=== PATIENT | male | born 1950 | race Caucasian/White ===

== ENCOUNTER 2018-10-02 10:43 | Observation (INO) | payer MEDICARE, OTHER ==
[~2018-10-02] VITALS: Ht 172.7 cm; Wt 103.9 kg
[~2018-10-02 10:43] MED LIST: AVAPRO150 MG PO; BABY ASPIRIN81 MG PO; COQ10 SG 100 S1 EACH PO; CRESTOR20 MG PO; GARLIC1 EACH PO; LAMISIL250 MG PO; MULTIVITAMINS1 EAC7 PO; NORVASC10 MG PO; PRILOSEC OTC20 MG PO
--- NOTE | 2018-10-02 11:30 | Diagnostic Imaging Report ---
EXAMINATION: Head CT HISTORY: Pleural effusion, alteration of consciousness COMPARISON: Head CT 05/29/2010 TECHNIQUE: Multidetector axial images were obtained without contrast from the foramen magnum to the vertex . The images were reconstructed using brain and bone algorithms. Thin section brain images were reformatted into coronal and sagittal planes. Image quality: Motion/streaking artifact limits the evaluation of the skull base and posterior cranial fossa. Dose modulation, iterative reconstruction, and/or weight based adjustment of the mA/kV was utilized to reduce the radiation dose to as low as reasonably achievable. FINDINGS: Parenchyma: 1. Cortical subcortical encephalomalacia in the left parieto-occipital cortex, consistent with chronic infarct in a watershed distribution between the left in PA and KENROY vascular territories (acute on head CT dated 05/29/2010). 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 2. No mass or hemorrhage. No CT evidence of acute territorial vascular insult. Extra-axial spaces:No abnormal density. No extra-axial fluid collections Brain volume: Normal for age. Ventricles: No hydrocephalus or displacement. Arteries: No density suggestive of thrombus. Dural sinuses: No abnormal density. Extra-axial spaces: No abnormal density. Foramen magnum: No mass, Chiari malformation, or basilar invagination. Sella: No obvious mass. Paranasal/mastoid sinuses: Imaged portions unremarkable. Skull/Scalp: No lytic or blastic lesions. No fractures. IMPRESSION: 1. No acute intracranial hemorrhage or cortical infarcts. 2. Chronic cortical infarct in the left parietal and occipital lobes as detailed above. A nonemergent CT angiogram of the head and neck with contrast is recommended for evaluation. Signed by: Dr. Ana Laura Gonzales M.D. on 10/02/2018 11:26 AM
[2018-10-02 12:04] LABS: BILIRUBIN,URINE NEGATIVE (NEGATIVE); CLARITY,URINE HAZY (CLEAR); COLOR,URINE YELLOW (YELLOW); KETONES,URINE NEGATIVE (NEGATIVE); LEUKOCYTE ESTERASE ,URINE NEGATIVE (NEGATIVE); NITRITE,URINE NEGATIVE (NEGATIVE); PROTEIN,URINE DIPSTICK NEGATIVE (NEGATIVE); URINE UROBILINOGEN 0.2 mg/dL (0.2 - 1)
--- NOTE | 2018-10-02 12:05 | NUR ---
RADIOLOGY AT BEDSIDE FOR CXR.
[2018-10-02 12:12] LABS: AMORPHOUS SEDIMENT,URINE FEW (FEW); BACTERIA,URINE RARE /HPF; EPITHELIAL CELLS,URINE RARE /LPF; WBC,URINE (MAN) 0-5 /HPF (0-5)
--- NOTE | 2018-10-02 13:32 | Diagnostic Imaging Report ---
Examination: Single AP view of the chest. COMPARISON: None. INDICATION: Confusion DISCUSSION: Lines/tubes: None. Lungs: The lungs are well inflated and clear. No pneumonia or pulmonary edema. Pleura: No pleural effusion or pneumothorax. Heart and mediastinum: The heart and the mediastinum are unremarkable. Bones and soft tissues: No acute bony abnormalities. IMPRESSION: 1. No acute cardiopulmonary abnormalities. Signed by: Dr. Roderick Gaxiola M.D. on 10/02/2018 1:29 PM
[2018-10-02 13:35] LABS: BASOPHILS # (AUTO) 0.1 (0.0-0.1); BASOPHILS % 1.4 % (0.0-1.0); EOSINOPHILS # (AUTO) 0.4 (0.0-0.4); EOSINOPHILS % 5.8 % (0.0-6.0); HEMOGLOBIN 14.4 g/dL (14.0-18.0); LYMPHOCYTES # (AUTO) 1.1 (1.0-3.2); LYMPHOCYTES % 14.7 % (18.0-39.1); MEAN CORPUSCULAR HEMOGLOBIN 30.7 pg (28-32); MEAN CORPUSCULAR HGB CONC 34.3 g/dL (31-35); MEAN CORPUSCULAR VOLUME 89.6 fL (81-99); MONOCYTES # (AUTO) 0.5 (0.2-0.8); MONOCYTES % 6.4 % (4.4-11.3); NEUTROPHILS # (AUTO) 5.4 (2.1-6.9); NEUTROPHILS % 71.4 % (38.7-80.0); PLATELET COUNT 241 x10e3/uL (140-360); RED BLOOD COUNT 4.69 x10e6/uL (4.3-5.7)
[2018-10-02 13:53] LABS: ALANINE AMINOTRANSFERASE 31 IU/L (0-55); ALBUMIN/GLOBULIN RATIO 0.9 (0.8-2.0); ALKALINE PHOSPHATASE 116 IU/L (40-150); BLOOD UREA NITROGEN 16 mg/dL (7-26); BUN/CREATININE RATIO 18 (6-25); CARBON DIOXIDE 26 mmol/L (22-29); CHLORIDE 101 mmol/L (98-107); CREATINE KINASE 135 IU/L (30-200); CREATININE, SERUM 0.88 mg/dL (0.72-1.25); EST GLOMERULAR FILTRATION RATE > 60 ML/MIN (60-); GLUCOSE 93 mg/dL (74-118); SODIUM 135 mmol/L (136-145)
--- OUTSIDE RECORDS SUMMARY | 2018-10-02 15:35 | XMS REPORT ---
Author Author [facility] Address Unknown Phone Unavailable Care Team Providers Care Services Rep Name Role Phone Watson SINGLETON Unavailable Unavailable Problems This patient has no known problems. Allergies, Adverse Reactions, Alerts This patient has no known allergies or adverse reactions. Medications This patient has no known medications. Results Test Description Test Time Test Comments Text Results Atomic Results Result Comments CHEST SINGLE (PORTABLE) 2018-10-02 13:28:00 [place] [address] Patient Name: DIRK SHIPLEY MR #: [id number] : 1950 Age/Sex: 68/M Req #: [id number] Adm Physician: Ordered by: ANNITA SINGLETON MD Report #: [id number] Location: ER Room/Bed: Procedure: [id number] DX/CHEST SINGLE (PORTABLE) Exam Date: 10/02/18 Exam Time: 1200 REPORT STATUS: Signed Examination: Single AP view of the chest. COMPARISON: None. INDICATION: Confusion DISCUSSION: Lines/tubes: None. Lungs: The lungs are well inflated and clear. No pneumonia or pulmonary edema. Pleura: No pleural effusion or pneumothorax. Heart and mediastinum: The heart and the mediastinum are unremarkable. Bones and soft tissues: No acute bony abnormalities. IMPRESSION: 1. No acute cardiopulmonary abnormalities. Signed by: Dr. Kalyan Roche M.D. on 10/02/2018 1:29 PM Dictated By: KALYAN ROCHE MD 28 Transcribed By: JIA on 10/02/181328 COPY TO: ANNITA SINGLETON MD CT BRAIN WO 2018-10-02 11:24:00 [place] [address] Patient Name: DIRK SHIPLEY MR #: [id number] : 1950 Age/Sex: 68/M Req #: [id number] Adm Physician: Ordered by: ANNITA SINGLETON MD Report #: [id number] Location: ER Room/Bed: Procedure: [id number] CT/CT BRAIN WO Exam Date: Exam Time: REPORT STATUS: Signed EXAMINATION: Head CT HISTORY: Pleural effusion, alteration of c onsciousness COMPARISON: Head CT 05/29/2010 TECHNIQUE: Multidetector axial images were obtained without contrast from the foramen magnum to the vertex . The images were reconstructed using brain and bone algorithms. Thin section brain images were reformatted into coronal and sagittal planes. Image quality: Motion/streaking artifact limits the evaluation of the skull base and posterior cranial fossa. Dose modulation, iterative reconstruction, and/or weight based adjustment of the mA/kV was utilized to reduce the radiation dose to as low as reasonably achievable. FINDINGS: Parenchyma: 1. Cortical subcortical encephalomalacia in the left parieto-occipital cortex, consistent with chronic infarct in a watershed distribution between the left in PA and KENROY vascular territories (acute on head CT dated 05/29/2010). 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 2. No mass or hemorrhage. No CT evidence of acute territorial vascular insult. Extra-axial spaces:No abnormal density. No extra-axial fluid collections Brain volume: Normal for age. Ventricles: No hydrocephalus or displacement. Arteries: No density suggestive of thrombus. Dural sinuses: No abnormal density. Extra-axial spaces: No abnormal density. Foramen magnum: No mass, Chiari malformation, or basilar invagination. Sella: No obvious mass. Paranasal/mastoid sinuses: Imaged portions unremarkable. Skull/Scalp: No lytic or blastic lesions. No fractures. IMPRESSION: 1. No acute intracranial hemorrhage or cortical infarcts. 2. Chronic cortical infarct in the left parietal and occipital lobes as detailed above. A nonemergent CT angiogram of the head and neck with contrast is recommended for evaluation. Signed by: Dr. Sabi Gonzales M.D. on 10/02/2018 11:26 AM Dictated By: SABI GONZALES MD [id number] Transcribed By: JIA on 10/02/18 1126 COPY TO: ANNITA SINGLETON MD
--- NOTE | 2018-10-02 18:00 | NUR ---
Received patient via wheelchair. Accompanied by daughter. AAOX2 to person,place, not to time. Oriented patient to time. Respirations even and unlabored. Tele #2 SR. Oriented patient and daughter to room. Instructed to use call light for assistance. Will continue to monitor.
[2018-10-02 18:06] VITALS: BP 115/59
--- NOTE | 2018-10-02 18:45 | NUR ---
aware of consult
--- NOTE | 2018-10-02 19:00 | NUR ---
Walking rounds done. Report given to oncoming nurse. Emely Gallego RN aware admission to be completed. at bedside. No s/s of acute distress noted.
--- NOTE | 2018-10-02 19:40 | NUR ---
patient received. patient is resting in bed, AAOx3 with some forgetfulness noted. Patient states he can't remember anything that happened this morning. Resp even and unlabored. No acute distress noted. Patient denies of any pain or discomfort at this time. family at bed side. call light within reach. instruct to call for assistance. bed low/locked. continue to monitor closely
[2018-10-02 20:00] VITALS: BP 142/80
[2018-10-02] MEDS ORDERED: CETIRIZINE HCL10 MG PO (20:43)
[2018-10-02] MEDS ORDERED: HYDROXYZINE HCL25 MG PO (20:43)
[2018-10-02] MEDS ORDERED: LEVOCETIRIZINE D5 MG PO (20:43)
[2018-10-03] VITALS (8 sets, daily range): BP systolic 133–164; BP diastolic 69–95
--- NOTE | 2018-10-03 07:10 | NUR ---
RCD PT AT BED PT IS ALERT AND ORIENTED PT RESTING ON BED IV PATENT FAMILY AT BED SIDE BED LOW AND LOCKED CALL LIGHT IN REACH
--- NOTE | 2018-10-03 08:14 | NUR ---
PAGED DR Ene FOOTE TO NOTIFY THE BP AND GET THE ORDER TO RENEW HOME MEDICATIONS
--- NOTE | 2018-10-03 08:25 | NUR ---
DR Ene FOOTE RETURNED THE CALL AND GOT THE ORDER TO RENEW THE HOME MEDS
[2018-10-03] MEDS ORDERED: HYDROXYZINE HCL 25 MG TAB PO PRN (08:30)
[2018-10-03] MEDS ORDERED: NON-FORMULARY MEDICATION (Levocetirizine Dihydrochloride 1 TAB) PO SCH (08:30)
[2018-10-03] MEDS: AMLODIPINE BESYLATE 10 MG TAB PO SCH (09:00)
[2018-10-03] MEDS: LORATADINE 10 MG TAB PO SCH (09:00)
[2018-10-03] MEDS: ASPIRIN 81 MG CHEW TAB PO SCH (09:00)
[2018-10-03] MEDS: MULTIVITAMINS/MINERALS TAB PO SCH (09:00)
[2018-10-03] MEDS: IRBESARTAN 150 MG TAB PO SCH (09:00)
[2018-10-03] MEDS ORDERED: NON-FORMULARY MEDICATION (Cetirizine Hcl 1 TAB) PO SCH (09:00)
--- NOTE | 2018-10-03 09:30 | NUR ---
CM SPOKE TO PATIENT AT BEDSIDE REGARDING IMM LETTER. IMM LETTER GIVEN WITH EXPLANATION BASED ON ANTICIPATED DISCHARGE DATE. ORIGINAL SIGNED AND PLACED IN CHART; COPY OF ORIGINAL DOCUMENT GIVEN TO PATIENT AT BEDSIDE AND PLACED IN CARE TRANSITION FOLDER. CM CONTACT INFORMATION GIVEN TO PATIENT FOR ANY NEEDS OR CONCERNS. PATIENT WITH NO FURTHER QUESTIONS.
--- NOTE | 2018-10-03 12:36 | NUR ---
CM SPOKE TO DR. FOOTE REGARDING PLAN OF CARE AND STATUS.PATIENT NOW ALERT AND ORIENTED THEREFORE DR. FOOTE STATES TO CHANGE PATIENT TO OBSERVATION STATUS UNTIL BLOOD AND URINE CULTURES COME BACK. IF CULTURES ARE POSITIVE HE STATES TO CHANGE PATIENT TO INPATIENT STATUS.
--- NOTE | 2018-10-03 18:40 | NUR ---
PT RESTING ON BED BED SIDE REPORT GIVEN TO ONCOMING NURSE
[2018-10-03 19:48] LABS: THYROID STIMULATING HORMONE 0.938 uIU/mL (0.350-4.940)
[2018-10-03 19:53] LABS: FOLATE 18.2 ng/mL (7.0-15.4)
--- NOTE | 2018-10-03 23:28 | Consultation ---
DATE OF CONSULTATION: 10/03/2018 Neurology Consult Note HISTORY OF PRESENT ILLNESS: Mr. Heart is a 68-year-old right-hand dominant man with past medical history significant for hypertension, hyperlipidemia, and a prior ischemic stroke with residual cognitive impairment, admitted to [facility] on October 02, 2018, with transient confusion. Sometime between 0745 and 0930 hours on the day of admission, the patient became confused. When questioned further, Mr. Heart is unable to provide details as he has no memory of the event. However, the patient's reports Mr. Heart was asking questions about a neighbor, who had approximately 3 years ago. She reports his questions gave the impression he thought the neighbor was still alive. Mr. Heart was unable to find various items around the house, even though these items are always put in a certain location. Mr. Heart could not recall why his had gone to physical therapy early in the morning. He could not name the current president. According to the patient's , Mr. Heart knew his identity, his 's identity, as well as his son's identity. However, he could not remember where his son was recently stationed nor could he recall the names of his granddaughters. During this time, Mr. Heart told his his head felt "fuzzy." According to his , the patient was frustrated because he realized he was confused and was having difficulty remembering certain things. The patient's does not report dysarthria, aphasia, facial weakness, hemiparesis, hemihypesthesia, poor balance, impairment of gait, or dizziness associated with the above symptoms. According to the patient's , the above described symptoms persisted unchanged for 12+ hours. After this time, Mr. Heart began to gradually improve. Approximately 20 to 22 hours after symptom onset, Mr. Heart had returned to his neurological baseline. Mr. Heart was brought to the emergency center at [facility] by his due to concerns the patient was having a stroke. Upon arrival in the emergency center, the patient was afebrile with a blood pressure of 149/105 mmHg and a pulse of 76 beats per minute. The patient's neurological examination was significant for disorientation to time. No other focal findings were identified. A CT of the brain without contrast was performed while the patient was in the emergency center. This study did not reveal evidence of recent large territorial ischemia or hemorrhage. A remote infarct in the left parieto-occipital region was noted. Mr. Heart was admitted to [facility] for further evaluation and treatment of his symptoms. At present, the patient's symptoms have resolved. Mr. Heart has not experienced similar symptoms previously. The patient denies taking any substances, prescription, or recreational within the past 48 hours. REVIEW OF SYSTEMS: Confusion. Otherwise, a 12-point review of systems is negative. PAST MEDICAL HISTORY: Hypertension, hyperlipidemia, nephrolithiasis, prior stroke with residual cognitive impairment, left carotid artery stenosis. PAST SURGICAL HISTORY: Left carotid endarterectomy, lithotripsy, ureteral stent placement, left cataract removal, tonsillectomy, vasectomy. PAST HOSPITALIZATIONS: Surgeries/procedures as listed, nephrolithiasis, stroke. FAMILY MEDICAL HISTORY: The paternal and maternal grandparents are . The patient's maternal grandfather is from coronary artery disease with a myocardial infarction. The medical histories of the remaining grandparents are unknown. Mr. Heart's father is from colon cancer. His mother is from ovarian cancer. Mr. Heart has multiple siblings with nephrolithiasis. The patient has 2 children, a son and a daughter, who are alive and healthy. SOCIAL HISTORY: Mr. Heart is . He is retired. The patient does report a prior history of tobacco use, but quit smoking cigarettes in 2009 after his stroke. The patient does not report current or remote alcohol or recreational drug use. HOME MEDICATIONS: Aspirin 81 mg by mouth daily, Norvasc 10 mg by mouth daily, irbesartan 300 mg by mouth daily, cetirizine 10 mg by mouth daily, hydroxyzine 25 mg by mouth as needed, levocetirizine 5 mg by mouth as needed, multivitamin one tablet by mouth daily. ALLERGIES: NO KNOWN DRUG ALLERGIES. NO KNOWN FOOD ALLERGIES. NO KNOWN ALLERGIES TO LATEX. NO KNOWN ALLERGIES TO IODINE OR OTHER CONTRAST MATERIALS. PHYSICAL EXAMINATION: VITAL SIGNS: Height 68 inches, weight 229 pounds, BMI 34.8 kg/m2, blood pressure 152/72 mmHg, pulse 70 beats per minute, respiratory rate 20 breaths per minute, and oxygen saturation 98% on room air. GENERAL: The patient is awake and alert, does not appear distressed. Obese. HEENT: Normocephalic, atraumatic. Pupils are equal, round, and reactive to light. Moist mucous membranes. NECK: Supple. No appreciable thyromegaly. No appreciable carotid bruits. CARDIOVASCULAR: S1, S2, regular rate and rhythm. No murmurs, rubs, or gallops. RESPIRATORY: Clear to auscultation bilaterally. No wheezes, rhonchi, or rales. EXTREMITIES: The skin is warm and dry. No clubbing, cyanosis, or edema. The posterior tibial and dorsalis pedis pulses are 2+ and symmetric. SKIN: No rashes or lesions. NEUROLOGIC: Memory/Attention: The patient is awake and alert, oriented to person, place, time, and situation. Cranial Nerves: Cranial nerve I - not tested. Cranial nerves II, III, IV, and - pupils are equal and round, react briskly to light (from 4 mm to 2 mm). Extraocular movements intact. No nystagmus. Cranial nerve V - sensation to light touch and pinprick is intact in the bilateral V1 through V3 distributions. Strength in the temporalis and masseter muscles are within normal limits. Cranial nerve VII - the face is symmetric as are all facial movements. Strength is within normal limits. Cranial nerve VIII - hearing is intact to finger rub bilaterally. Cranial nerves IX, X - the soft palate elevates equally and symmetrically. Cranial nerve XI - normal strength of the bilateral sternocleidomastoid and trapezius muscles. Cranial nerve XII - the tongue protrudes midline and moves symmetrically from [id number]. Strength: Bulk is normal. Strength is 5/5 in the bilateral deltoids, biceps, triceps, wrist flexors and extensors, finger flexors and extensors, intrinsic hand muscles, hip flexors, knee flexors and extensors, ankle dorsiflexion and plantar flexion, and intrinsic foot muscles. Tone is normal. DTRs: Deep tendon reflexes are 2+ and symmetric at the triceps, biceps, brachioradialis, and patellas. Deep tendon reflexes are absent and symmetric at the Achilles. Plantar responses are flexor bilaterally. Sensation: Sensation is intact to light touch and pinprick in both arms and both legs. Cerebellar: Pwuysf-gjcu-artkep and heel-hatfield movements are intact without dysmetria or other impairment. Gait: Deferred. Speech: Spontaneous speech is normal without appreciable dysarthria or aphasia. Repetition is intact. Involuntary Movements: None. Pronator Drift: None. LABORATORY DATA: A comprehensive metabolic panel is significant for sodium of 135, total protein of 8.3, and globulin of 4.3. Lactic acid 12.1. Ammonia 41. The CBC with differential and platelets reveals a white blood cell count of 7.62 with a right shift with 71.4% neutrophils, 14.7% lymphocytes, 6.4% monocytes, 5.8% eosinophils, and 1.4% basophils. The hemoglobin and hematocrit are 14.4 and 42.0, respectively. The platelet count is 241. Erythrocyte sedimentation rate is 8. A urinalysis is significant for hazy urine. Urine culture collected on October 03, 2018 is pending. A blood culture collected on October 03, 2018 is pending. DIAGNOSTIC STUDIES: Electrocardiogram on 10/02/2018: Normal sinus rhythm at 79 beats per minute. Left atrial enlargement. CT of the brain without contrast on 10/02/2018: On my review, there is no evidence of recent large territorial ischemia, hemorrhage, mass, or mass effect. Cortical and subcortical encephalomalacia is seen in the left parieto-occipital region consistent with a chronic infarct in a watershed distribution between the left posterior cerebral artery and middle cerebral artery. A chronic infarct in the left posterior occipital lobe along the left posterior cerebral artery vascular distribution is noted as well. Cerebral volumes are appropriate for age. There are scattered T2/FLAIR hypodense foci in the supratentorial deep white matter compatible with mild chronic small vessel ischemic disease. Chest x-ray on 10/02/2018: No acute cardiopulmonary abnormalities. ASSESSMENT AND PLAN: Mr. Heart is a 68-year-old right-hand dominant man with past medical history as detailed, admitted to [facility] on October 02, 2018 with transient confusion, now resolved. At present, the patient's neurological examination is nonfocal. His laboratory data and other diagnostic studies have been reviewed and are documented above. In my opinion, the patient's history is compatible with a diagnosis of transient global amnesia. However, this is a diagnosis of exclusion. Additional studies must be ordered to exclude other possible causes of transient confusion. RECOMMENDATIONS: Are as follows: 1. Additional blood and urine studies will be ordered as follows: Thyroid- stimulating hormone, vitamin B1 level, vitamin B12 level, methylmalonic acid, folate, rapid plasma reagin, blood alcohol level, and urine drug screen. Follow up the results of the pending blood and urine cultures. 2. An MRI of the brain without contrast will be ordered for further evaluation. 3. A routine EEG will be ordered for further evaluation. 4. Defer treatment of the remaining medical comorbidities to the primary and other services following the patient. Thank you for this consultation. I will continue to follow the patient while he remains in the hospital. TIME SPENT: 50 minutes. Sailaaj Grant MD CP/RICKIE /[id number] MTDNilton
[2018-10-04 00:56] VITALS: BP 136/64
[2018-10-04 06:12] VITALS: BP 121/60
[2018-10-04 06:24] LABS: BASOPHILS # (AUTO) 0.1 (0.0-0.1); BASOPHILS % 1.4 % (0.0-1.0); EOSINOPHILS # (AUTO) 0.7 (0.0-0.4); EOSINOPHILS % 9.6 % (0.0-6.0); HEMATOCRIT 40.6 % (38.2-49.6); HEMOGLOBIN 13.8 g/dL (14.0-18.0); LYMPHOCYTES # (AUTO) 1.2 (1.0-3.2); LYMPHOCYTES % 17.4 % (18.0-39.1); MEAN CORPUSCULAR HEMOGLOBIN 30.9 pg (28-32); MONOCYTES # (AUTO) 0.7 (0.2-0.8); MONOCYTES % 9.3 % (4.4-11.3); NEUTROPHILS # (AUTO) 4.4 (2.1-6.9); PLATELET COUNT 195 x10e3/uL (140-360); RED BLOOD COUNT 4.46 x10e6/uL (4.3-5.7); RED CELL DISTRIBUTION WIDTH 12.9 % (11.7-14.4)
[2018-10-04 06:39] LABS: ANION GAP 12.3 mmol/L (8-16); BLOOD UREA NITROGEN 17 mg/dL (7-26); BUN/CREATININE RATIO 20 (6-25); CALCIUM 9.2 mg/dL (8.4-10.2); CARBON DIOXIDE 24 mmol/L (22-29); CHLORIDE 105 mmol/L (98-107); CREATININE, SERUM 0.84 mg/dL (0.72-1.25); EST GLOMERULAR FILTRATION RATE > 60 ML/MIN (60-); GLUCOSE 95 mg/dL (74-118); POTASSIUM 4.3 mmol/L (3.5-5.1); SODIUM 137 mmol/L (136-145)
[2018-10-04 07:21] LABS: AMPHETAMINES SCREEN,URINE NEGATIVE (NEGATIVE); BENZODIAZEPINES SCREEN,URINE NEGATIVE (NEGATIVE); PHENCYCLIDINE SCREEN,URINE NEGATIVE (NEGATIVE)
--- NOTE | 2018-10-04 08:35 | NUR ---
GOT THE ORDER TO TAKE TELEY OFF FOR MRI
[2018-10-04 08:59] VITALS: BP 132/60
[2018-10-04 09:00] VITALS: BP 132/60
[2018-10-04] MEDS: LORATADINE 10 MG TAB PO SCH (09:00)
[2018-10-04] MEDS: IRBESARTAN 150 MG TAB PO SCH (09:00)
[2018-10-04] MEDS: AMLODIPINE BESYLATE 10 MG TAB PO SCH (09:00)
[2018-10-04] MEDS: ASPIRIN 81 MG CHEW TAB PO SCH (09:00)
[2018-10-04] MEDS: MULTIVITAMINS/MINERALS TAB PO SCH (09:00)
--- NOTE | 2018-10-04 09:05 | NUR ---
PT WENT TO PROCEDURE IN SAFE CONDITION
--- NOTE | 2018-10-04 10:19 | Diagnostic Imaging Report ---
Examination: MRI BRAIN WITHOUT CONTRAST History: Memory loss. Confusion. Comparison studies: Head CT performed October 02, 2018. Brain MRI performed May 31, 2010 Technique: Hi resolution Sag T1 with coronal and axial reformats. Axial DWI, T2, T2 flair, gradient echo or SWI Intravenous contrast: None Findings: Scalp: No abnormal signal. No masses. Bone marrow: Normal in signal intensity. Brain volume: Adequate for age. No volume loss. Ventricles: Normal in size and configuration. No hydrocephalus. Extra-axial spaces: No abnormalities. Parenchyma: Again demonstrated is cortical based area of encephalomalacia involving the left parieto-occipital cortex from prior watershed ischemia between the posterior and middle cerebral arteries. Unchanged chronic lacunar infarct in the left mid cerebellum. There are a few scattered patchy areas of T2/FLAIR hyperintensity in the periventricular and subcortical white matter, nonspecific. No masses, hemorrhage, or acute vascular insults. Suprasellar and sellar region: No abnormalities. Craniocervical junction: No abnormalities. The foramen magnum is patent. No Chiari malformations. Vessels: Normal flow-voids in the arteries and sinuses. Additional findings:None. IMPRESSION: No acute intracranial abnormalities. Unchanged chronic changes which includes chronic infarct in the left posterior and middle cerebral artery territories and chronic lacunar infarct in the left mid cerebellum. Unchanged mild chronic microvascular stomach change. Signed by: Dr. Melly Chu M.D. on 10/04/2018 10:16 AM
[2018-10-04 12:28] VITALS: BP 139/77
[2018-10-04 16:59] VITALS: BP 143/65
--- NOTE | 2018-10-04 19:52 | Electroencephalogram ---
DATE OF STUDY: 10/04/2018 REQUESTING PHYSICIAN: Sailaja Grant MD HISTORY: This 68-year-old man with a history of transient confusion is having an EEG for evaluation of epileptiform activity. The patient is not taking any medications which may affect the EEG. TECHNIQUE: This is a routine, portable EEG, recorded digitally, using the International 10/20 electrode placement system, and done in the inpatient setting with the patient awake. The EEG is adequate for interpretation. DESCRIPTION: Well-organized, well-sustained, 9-10 hertz activity is best seen symmetrically over the posterior head regions. No focal or epileptiform activity is recorded. Sleep is not recorded. Photic stimulation does not produce a driving response. Hyperventilation does not produce slowing. INTERPRETATION: This EEG is normal with the patient awake. No epileptiform discharges are seen. Clinical correlation is recommended. Sailaja Grant MD CP/MODL /[id number] MTDD
--- NOTE | 2018-10-04 20:00 | NUR ---
Patient discharged home by his via private auto. All belongings with patient.
== END 2018-10-04 20:26 | disposition home or self-care (01) ==
LOC: ER 10:43 → INTOOBSV 15:32 → ERHOLD 15:32 → MED/SURG2 17:46
DX: G45.4 Transient global amnesia (principal); E78.5 Hyperlipidemia, unspecified; I10 Essential (primary) hypertension; R41.0 Disorientation, unspecified; I69.319 Unspecified symptoms and signs involving cognitive functions following cerebral infarction
CPT/HCPCS: 36415 ×3; 70450; 70551; 71045; 80048; 80053; 80307; 80320; 81001; 82140; 82550; 82553; 82607; 82746; 83605; 83921; 84425; 84443; 84484; 85025 ×2; 85651; 86592; 87040; 87086; 93005; 95819; 99285; G0378 ×3

== ENCOUNTER → 2018-11-22 | Day surgery (SDC) | payer MEDICARE ==
[~2018-11-22] MED LIST changes: +BETAMETHASONE DIPROPIONATE TOP; +CALCIPOTRIENE TOP; +CENTRUM SILVER1 EAC3 PO; +CETIRIZINE HCL10 MG PO; +FENTANYL CITRATE/PF 100MCG/2 ML INJ ONE; +HYDROXYZINE HCL25 MG PO; +HYOSCYAMINE SULFATE 0.5 MG/ML INJ ONE; +LEVOCETIRIZINE D5 MG PO; +LIDOCAINE HCL 2% LOCAL INJ 5 ML SDV VIAL INJ ONE; +MAGNESIUM PO; +MIDAZOLAM HCL 2 MG/2 ML VIAL ONE; +MUPIROCIN22 GM TOP; +PROBIOTIC & AC1 EACH PO; +PROPOFOL IV EMULSION 10 MG/ML 50 ML VIAL ONE; +VITAMIN D250000 UNIT PO; +[UNRECOGNIZED DRUG - OTHER] PO
[2018-11-22 12:25] VITALS: BP 119/67
--- NOTE | 2018-11-22 15:29 | Operative Report ---
DATE OF PROCEDURE: 11/22/2018 SURGEON: Arben Stockton MD PROCEDURE: Colonoscopy and polypectomy. INDICATION FOR COLONOSCOPY: Surveillance colonoscopy, personal history of colon polyps. MEDICATION: The patient was done under MAC, please see anesthesiologist's note. PROCEDURE IN DETAIL: With the patient in left lateral decubitus position, a flexible fiberoptic Olympus colonoscope was inserted into the rectum with ease and advanced all the way to the cecum. It was then withdrawn slowly and mucosa overlying the cecum, ascending colon, transverse colon, and descending colon appeared to be within normal limits. Some diverticulosis was noted in the sigmoid colon. One polyp was snared from the sigmoid colon. One polyp was snared and one polyp was hot biopsied from the rectum. The scope was then retroflexed into the distal rectum and small internal hemorrhoids were noted, none of which was actively bleeding. The scope was then straightened out, it was subsequently withdrawn. The patient tolerated procedure well. IMPRESSION: 1. Diverticulosis. 2. Sigmoid colon polyp, snared. 3. Rectal polyps x2 one hot biopsied and one snared. 4. Internal hemorrhoids, none actively bleeding. PLAN: Follow up histology. Initiate high-fiber, low-fat diet. Initiate high-fiber supplement. The patient might benefit from a followup colonoscopy in 3 years. Arben Stockton MD [facility] [place]/THANIAL /[id number] cc: Jose Francisco Stockton MD
== END | disposition home or self-care (01) ==
LOC: OR 08:20
PROVIDERS: ATTEND Internal Medicine Gastroenterology
DX: D12.5 Benign neoplasm of sigmoid colon (principal); K62.1 Rectal polyp; K57.30 Diverticulosis of large intestine without perforation or abscess without bleeding; K64.8 Other hemorrhoids; L29.0 Pruritus ani; I69.334 Monoplegia of upper limb following cerebral infarction affecting left non-dominant side; N20.0 Calculus of kidney; I10 Essential (primary) hypertension; Z01.810 Encounter for preprocedural cardiovascular examination; Z79.82 Long term (current) use of aspirin; Z68.35 Body mass index [BMI] 35.0-35.9, adult; Z87.891 Personal history of nicotine dependence
CPT/HCPCS: 45384; 45385; 88305; 93005; J1980; J2001; J2250; J2704; 45378

== ENCOUNTER → 2019-03-08 | Outpatient (CLI) | payer MEDICARE ==
[~2019-03-08] MED LIST changes: -FENTANYL CITRATE/PF 100MCG/2 ML INJ ONE; -HYOSCYAMINE SULFATE 0.5 MG/ML INJ ONE; +IOPAMIDOL 370 MG/ML 200 ML INFUS..BTL INJ ONE; -LIDOCAINE HCL 2% LOCAL INJ 5 ML SDV VIAL INJ ONE; -MIDAZOLAM HCL 2 MG/2 ML VIAL ONE; -PROPOFOL IV EMULSION 10 MG/ML 50 ML VIAL ONE; +SODIUM CHLORIDE 0.9% 100 ML 100 ML ONE
[2019-03-08 13:34] LABS: BLOOD UREA NITROGEN 12 mg/dL (7-26); BUN/CREATININE RATIO 14 (6-25); CREATININE, SERUM 0.83 mg/dL (0.72-1.25); EST GLOMERULAR FILTRATION RATE > 60 ML/MIN (60-)
--- NOTE | 2019-03-12 09:20 | Diagnostic Imaging Report ---
Examination: Cervical CT Angiogram with Contrast Clinical indication:Numbness and tingling of left arm. Comparison: CTA neck performed May 31, 2010. Technique: Axial images were obtained from the thoracic inlet. Coronal and sagittal images reconstructed from the axial data. Intravenous contrast: 100 cc of Isovue 370. Computer generated maximum intensity projection and 3D images were performed of the bilateral carotid bifurcations and the aortic arch with bilateral common carotid and cervical internal carotid arteries on a separate workstation. Degree of stenosis at the carotid bulbs, if present, will be calculated using NASCET criteria where the smallest diameter at the location of stenosis is compared to the diameter of the more distal non-diseased vessel lumen. Dose modulation, iterative reconstruction, and/or weight based adjustment of the mA/kV was utilized to reduce the radiation dose to as low as reasonably achievable. 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 Common carotid arteries: Patent on the right. Mild stenosis (less than 50%) on the left due to circumferential soft plaque Cervical carotid bifurcations: Right: Nonstenotic circumferential soft plaque. Left :Nonstenotic circumferential mixed plaque with severe stenosis of the left external carotid artery Internal carotid arteries: Right: Unchanged moderate stenosis (70 %) of the proximal right cervical internal carotid artery for a length of 8 mm. Left: Patent despite soft plaque proximally. Again demonstrated is an occluded stent graft from the left subclavian to the left carotid bulb. Vertebral arteries: Patent. Intracranial [place]: Patent anterior communicating artery and bilateral posterior communicating arteries. Hypoplastic/absent right A1 anterior cervical artery. IMPRESSION: Unchanged moderate stenosis (70%) of the proximal right cervical internal carotid artery due to soft plaque when compared to prior CTA of the neck performed May 31, 2010. 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 Unchanged mild stenosis (less than 50%) of the distal left common carotid artery due to soft plaque. Signed by: Dr. Melly Chu M.D. on 03/12/2019 9:17 AM
== END ==
LOC: CT 12:39
PROVIDERS: ATTEND Surgery
DX: M79.622 Pain in left upper arm (principal); R20.0 Anesthesia of skin
CPT/HCPCS: 36000; 36415; 70498; 82565; 84520; Q9967

== ENCOUNTER → 2019-03-12 | Outpatient (CLI) | payer MEDICARE ==
[2019-03-12 16:15] LABS: BLOOD UREA NITROGEN 20 mg/dL (7-26); BUN/CREATININE RATIO 22 (6-25); CREATININE, SERUM 0.93 mg/dL (0.72-1.25); EST GLOMERULAR FILTRATION RATE > 60 ML/MIN (60-)
--- NOTE | 2019-03-13 08:41 | Diagnostic Imaging Report ---
EXAM: CTA CHEST ABDOMEN PELVIS INDICATION: AORTIC REPAIR COMPARISON: CTA neck from 03/08/2019 TECHNIQUE: Multi-detector CT technology was employed. CTA Gated axial imaging of the chest, abdomen, and pelvis was performed after the administration of IV contrast. RADIATION DOSE: Total DLP: 1072.09 mGy*cm Dose modulation, iterative reconstruction, and/or weight based adjustment of the mA/kV was utilized to reduce the radiation dose to as low as reasonably achievable. FINDINGS: Vascular: The thoracic aorta is normal in course and caliber with atherosclerotic plaque within its course and branch vessels including the coronary arteries. The mid ascending thoracic aorta measures 3.5 x 3.9 cm. The proximal descending thoracic measures 3.0 x 2.9 cm. The mid descending thoracic aorta measures 2.1 x 2.2 cm. The descending thoracic aorta measures 2.3 x 2.3 centers at the diaphragmatic hiatus. Again identified is occlusion the proximal left subclavian artery with reconstitution proximal to the left vertebral artery. Findings are better evaluated on the recent prior CTA neck examination. Partially visualized occluded left subclavian to carotid stent again noted. The right brachiocephalic and left common carotid branches of the aortic arch are patent. The pulmonary artery distributes normally without evidence of a central filling defect. There are 4 pulmonary veins which appear grossly unremarkable. The abdominal aorta is normal in course and caliber with moderate atherosclerotic calcifications. The abdominal aorta measures: 2.1 x 2.2 cm at the supramesenteric segment 2.1 x 2.0 cm at the mesenteric segment 1.7 x 1.7 cm at the renal segment 1.6 x 1.6 cm at the mid infrarenal segment 1.2 x 1.5 cm at the aortic bifurcation. The celiac axis, SMA, bilateral renal arteries, and ARLEEN are patent without significant focal stenosis. Single renal arteries noted bilaterally. The bilateral common iliac, external iliac, internal iliac arteries are patent with moderate atherosclerotic plaque. Nonvascular: The visualized structures within the base of the neck demonstrate no significant abnormalities. The heart is not enlarged. There is no abnormal pericardial fluid present. There is no abnormal axillary, mediastinal, or hilar lymph node enlargement. The trachea and proximal airways are patent. Examination of the lungs demonstrates no evidence for consolidation, pneumothorax or mass, suspicious nodule, or pleural effusion. The liver is normal in size and attenuation without evidence for focal abnormality. Small radiopaque stones noted within the gallbladder which otherwise appears unremarkable. There is no biliary ductal dilatation. There is a small hiatal hernia present. The stomach otherwise appears unremarkable. The spleen, pancreas, and bilateral adrenal glands are unremarkable. The kidneys are normal in size and location and concentrate contrast material properly. There is no evidence for hydronephrosis. The ureters are normal in caliber. The urinary bladder and prostate straightening of significant abnormalities. Please note evaluation of the bowel is limited without the use of enteric contrast material. The visualized loops of small and large bowel demonstrate no evidence of obstruction or inflammation. Diverticula are noted within the sigmoid colon without evidence for acute diverticulitis. There is no ascites or peritoneal free air. No abnormally enlarged lymph nodes are identified within the abdomen or pelvis. The osseous structures demonstrate degenerative changes without evidence for acute fracture or destructive process. The extraperitoneal soft tissues are unremarkable. IMPRESSION: 1. No acute thoracic or abdominal aortic pathology identified. No evidence for aneurysmal dilatation. 2. Aortic atherosclerosis. 3. 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 4. Cholelithiasis. Signed by: Dr. Dwight Moeller MD on 03/13/2019 8:38 AM
== END ==
LOC: CT 15:17
PROVIDERS: ATTEND Surgery
DX: R20.2 Paresthesia of skin (principal); M79.602 Pain in left arm
CPT/HCPCS: 36415; 71275; 74174; 82565; 84520; Q9967

== ENCOUNTER 2020-08-23 15:56 | Emergency (ER) | payer OTHER ==
[~2020-08-23] VITALS: Ht 172.7 cm; Wt 103.9 kg
[~2020-08-23 15:56] MED LIST changes: -IOPAMIDOL 370 MG/ML 200 ML INFUS..BTL INJ ONE; -SODIUM CHLORIDE 0.9% 100 ML 100 ML ONE
[2020-08-23 17:02] LABS: BASOPHILS # (AUTO) 0.1 (0.0-0.1); BASOPHILS % 1.1 % (0.0-1.0); EOSINOPHILS # (AUTO) 0.4 (0.0-0.4); EOSINOPHILS % 4.8 % (0.0-6.0); HEMOGLOBIN 12.5 g/dL (14.0-18.0); LYMPHOCYTES # (AUTO) 1.2 (1.0-3.2); LYMPHOCYTES % 13.6 % (18.0-39.1); MEAN CORPUSCULAR HEMOGLOBIN 30.1 pg (28-32); MEAN CORPUSCULAR HGB CONC 33.8 g/dL (31-35); MEAN CORPUSCULAR VOLUME 89.2 fL (81-99); MONOCYTES # (AUTO) 0.7 (0.2-0.8); MONOCYTES % 7.2 % (4.4-11.3); NEUTROPHILS # (AUTO) 6.6 (2.1-6.9); NEUTROPHILS % 72.9 % (38.7-80.0); PLATELET COUNT 215 x10e3/uL (140-360); RED BLOOD COUNT 4.15 x10e6/uL (4.3-5.7); RED CELL DISTRIBUTION WIDTH 13.6 % (11.7-14.4)
[2020-08-23 17:16] LABS: ALANINE AMINOTRANSFERASE 31 IU/L (0-55); ALKALINE PHOSPHATASE 109 IU/L (40-150); ANION GAP 16.1 mmol/L (8-16); BLOOD UREA NITROGEN 17 mg/dL (7-26); BUN/CREATININE RATIO 16 (6-25); CALCIUM 9.4 mg/dL (8.4-10.2); CARBON DIOXIDE 24 mmol/L (22-29); CHLORIDE 104 mmol/L (98-107); CREATINE KINASE 127 IU/L (30-200); CREATININE, SERUM 1.09 mg/dL (0.72-1.25); EST GLOMERULAR FILTRATION RATE > 60 ML/MIN (60-); GLUCOSE 111 mg/dL (74-118); POTASSIUM 4.1 mmol/L (3.5-5.1); SODIUM 140 mmol/L (136-145)
[2020-08-23] MEDS ORDERED: ONDANSETRON ODT4 MG PO (18:12)
[2020-08-23] MEDS ORDERED: MECLIZINE HCL12.5 MG PO (18:12)
== END 2020-08-23 18:27 | disposition home or self-care (01) ==
LOC: ER 16:37
DX: R42 Dizziness and giddiness (principal); R11.2 Nausea with vomiting, unspecified; I10 Essential (primary) hypertension; E78.5 Hyperlipidemia, unspecified; K21.9 Gastro-esophageal reflux disease without esophagitis; L30.9 Dermatitis, unspecified; Z86.73 Personal history of transient ischemic attack (TIA), and cerebral infarction without residual deficits
CPT/HCPCS: 36415; 70450; 71045; 80053; 82550; 82553; 84484; 85025; 99283

== ENCOUNTER 2022-04-05 13:51 | Emergency (ER) | payer MEDICARE ==
[~2022-04-05] VITALS: Ht 172.7 cm; Wt 103.9 kg
[~2022-04-05 13:51] MED LIST changes: +MECLIZINE HCL12.5 MG PO; +ONDANSETRON ODT4 MG PO
[2022-04-05] MEDS ORDERED: KETOROLAC TROMETHAMINE 30 MG/ML VIAL IV STA (14:05)
[2022-04-05] MEDS ORDERED: ONDANSETRON HCL INJ 2MG/ML 2ML 2 MG/ML VIAL IV PRN (14:15)
[2022-04-05] MEDS ORDERED: SODIUM CHLORIDE 0.9% 1000ML 1,000 ML IV ONE (14:15)
[2022-04-05] MEDS ORDERED: TAMSULOSIN HCL 0.4 MG CAP PO ONE (14:30)
[2022-04-05 15:01] LABS: BASOPHILS # (AUTO) 0.1 (0.0-0.1); BASOPHILS % 1.1 % (0.0-1.0); EOSINOPHILS # (AUTO) 0.5 (0.0-0.4); EOSINOPHILS % 5.4 % (0.0-6.0); HEMATOCRIT 39.9 % (38.2-49.6); HEMOGLOBIN 13.3 g/dL (14.0-18.0); LYMPHOCYTES # (AUTO) 1.5 (1.0-3.2); LYMPHOCYTES % 16.7 % (18.0-39.1); MEAN CORPUSCULAR HEMOGLOBIN 30.4 pg (28-32); MEAN CORPUSCULAR HGB CONC 33.3 g/dL (31-35); MEAN CORPUSCULAR VOLUME 91.3 fL (81-99); MONOCYTES # (AUTO) 0.8 (0.2-0.8); MONOCYTES % 9.3 % (4.4-11.3); NEUTROPHILS # (AUTO) 5.9 (2.1-6.9); NEUTROPHILS % 67.3 % (38.7-80.0); PLATELET COUNT 223 x10e3/uL (140-360); RED BLOOD COUNT 4.37 x10e6/uL (4.3-5.7); RED CELL DISTRIBUTION WIDTH 12.9 % (11.7-14.4)
[2022-04-05 15:17] LABS: ANION GAP 15.1 mmol/L (8-16); CALCIUM 9.9 mg/dL (8.4-10.2); CREATININE, SERUM 0.96 mg/dL (0.72-1.25); POTASSIUM 4.1 mmol/L (3.5-5.1)
[2022-04-05] MEDS ORDERED: ONDANSETRON ODT4 MG PO (16:03)
[2022-04-05] MEDS ORDERED: ACETAMINOPHEN-1 EAC4 PO ×2 (16:03→16:14)
[2022-04-05] MEDS ORDERED: KETOROLAC TROME10 MG PEG (16:07)
[2022-04-05 16:29] LABS: CLARITY,URINE SL CLOUDY (CLEAR); COLOR,URINE AMBER (YELLOW); KETONES,URINE NEGATIVE (NEGATIVE); LEUKOCYTE ESTERASE ,URINE TRACE (NEGATIVE); NITRITE,URINE NEGATIVE (NEGATIVE); PROTEIN,URINE DIPSTICK 2+ (NEGATIVE); URINE UROBILINOGEN 0.2 mg/dL (0.2 - 1)
[2022-04-05] MEDS ORDERED: CEFDINIR300 MG PO (16:37)
[2022-04-05 16:42] LABS: WBC,URINE (MAN) 0-5 /HPF (0-5)
[2022-04-05 16:43] LABS: BACTERIA,URINE MODERATE /HPF; CALCIUM OXALATE CRYSTALS,UR MODERATE (FEW); EPITHELIAL CELLS,URINE RARE /LPF
== END 2022-04-05 17:53 | disposition home or self-care (01) ==
LOC: ER 14:01
DX: R10.32 Left lower quadrant pain (principal); N20.0 Calculus of kidney; N30.90 Cystitis, unspecified without hematuria; K80.20 Calculus of gallbladder without cholecystitis without obstruction; K57.30 Diverticulosis of large intestine without perforation or abscess without bleeding; K40.20 Bilateral inguinal hernia, without obstruction or gangrene, not specified as recurrent; I10 Essential (primary) hypertension; E78.5 Hyperlipidemia, unspecified; K21.9 Gastro-esophageal reflux disease without esophagitis; L30.9 Dermatitis, unspecified; Z86.73 Personal history of transient ischemic attack (TIA), and cerebral infarction without residual deficits
CPT/HCPCS: 36415; 74176; 80053; 81001; 85025; 87086; 99284; J1885; J2405; J7030

== ENCOUNTER → 2022-07-05 | Day surgery (SDC) | payer MEDICARE ==
[2022-06-29 11:12] LABS: BASOPHILS # (AUTO) 0.1 (0.0-0.1); BASOPHILS % 1.2 % (0.0-1.0); EOSINOPHILS # (AUTO) 0.5 (0.0-0.4); EOSINOPHILS % 5.8 % (0.0-6.0); HEMATOCRIT 43.2 % (38.2-49.6); HEMOGLOBIN 13.7 g/dL (14.0-18.0); LYMPHOCYTES # (AUTO) 1.3 (1.0-3.2); LYMPHOCYTES % 17.4 % (18.0-39.1); MEAN CORPUSCULAR HGB CONC 31.7 g/dL (31-35); MEAN CORPUSCULAR VOLUME 94.5 fL (81-99); MONOCYTES # (AUTO) 0.6 (0.2-0.8); MONOCYTES % 7.4 % (4.4-11.3); NEUTROPHILS # (AUTO) 5.2 (2.1-6.9); NEUTROPHILS % 67.9 % (38.7-80.0); PLATELET COUNT 176 x10e3/uL (140-360); RED BLOOD COUNT 4.57 x10e6/uL (4.3-5.7); RED CELL DISTRIBUTION WIDTH 13.2 % (11.7-14.4)
[2022-06-29 11:40] LABS: ANION GAP 14.3 mmol/L (8-16); CALCIUM 9.5 mg/dL (8.4-10.2); CREATININE, SERUM 0.92 mg/dL (0.72-1.25); POTASSIUM 4.3 mmol/L (3.5-5.1)
[~2022-07-05] MED LIST changes: +ACETAMINOPHEN-1 EAC4 PO; +ALIGN4 MG PO; +ATORVASTATIN CA20 MG PO; +CEFDINIR300 MG PO; +CEFTRIAXONE 1 GM VIAL ONE; +CLOPIDOGREL75 MG PO; +DEXAMETHASONE SOD PHOS INJ 4 MG/ML SDV ONE; +EPHEDRINE SULFATE INJ 50 MG/ML VIAL ONE; +FENTANYL CITRATE/PF 100MCG/2 ML INJ ONE; +HALOBETASOL PRO15 G1 TOP; +IOPAMIDOL 610MG/1ML 300 MG/ML VIAL IV ONE; +KETOROLAC TROME10 MG PEG; +KETOROLAC TROME10 MG PO; +LIDOCAINE HCL 2% LOCAL INJ 5 ML SDV VIAL INJ ONE; +MIDAZOLAM HCL 2 MG/2 ML VIAL ONE; +ONDANSETRON HCL INJ 2MG/ML 2ML 2 MG/ML VIAL ONE; +PHENYLEPHRINE HCL 1% 10 MG/ML VIAL ONE; +POVIDONE IODINE 0.05% 0.05 % ML PO ONE; +PROPOFOL IV EMULSION 10 MG/ML 20 ML VIAL ONE; +SEVOFLURANE INHAL SOLN 250 ML PEN BTL ONE; +VITAMIN D3125 MCG PO
[2022-07-05 09:27] VITALS: BP 150/87
== END | disposition home or self-care (01) ==
LOC: OR 05:43
PROVIDERS: ATTEND Urology
DX: N13.2 Hydronephrosis with renal and ureteral calculous obstruction (principal); N32.89 Other specified disorders of bladder; N40.0 Benign prostatic hyperplasia without lower urinary tract symptoms; I25.10 Atherosclerotic heart disease of native coronary artery without angina pectoris; I10 Essential (primary) hypertension; E78.5 Hyperlipidemia, unspecified; I73.9 Peripheral vascular disease, unspecified; I69.334 Monoplegia of upper limb following cerebral infarction affecting left non-dominant side; K21.9 Gastro-esophageal reflux disease without esophagitis; Z01.810 Encounter for preprocedural cardiovascular examination; Z01.812 Encounter for preprocedural laboratory examination; Z01.818 Encounter for other preprocedural examination; Z79.02 Long term (current) use of antithrombotics/antiplatelets; Z79.82 Long term (current) use of aspirin; Z79.899 Other long term (current) drug therapy; Z95.820 Peripheral vascular angioplasty status with implants and grafts; Z87.891 Personal history of nicotine dependence
CPT/HCPCS: 36415; 50590; 52332; 71046; 74018; 80048; 83970; 84550; 85025; 93005; C1758; C1874; J0696; J1100; J2001; J2250; J2370; J2405; J2704; J3010; Q9967

== ENCOUNTER → 2022-08-24 | Day surgery (SDC) | payer MEDICARE ==
[2022-08-23 12:41] LABS: BASOPHILS # (AUTO) 0.1 (0.0-0.1); BASOPHILS % 0.9 % (0.0-1.0); EOSINOPHILS # (AUTO) 0.5 (0.0-0.4); EOSINOPHILS % 5.9 % (0.0-6.0); HEMATOCRIT 39.3 % (38.2-49.6); LYMPHOCYTES # (AUTO) 1.5 (1.0-3.2); LYMPHOCYTES % 18.3 % (18.0-39.1); MEAN CORPUSCULAR HEMOGLOBIN 29.2 pg (28-32); MEAN CORPUSCULAR HGB CONC 33.1 g/dL (31-35); MEAN CORPUSCULAR VOLUME 88.3 fL (81-99); MONOCYTES # (AUTO) 0.7 (0.2-0.8); NEUTROPHILS # (AUTO) 5.2 (2.1-6.9); NEUTROPHILS % 65.5 % (38.7-80.0); PLATELET COUNT 198 x10e3/uL (140-360); RED BLOOD COUNT 4.45 x10e6/uL (4.3-5.7); RED CELL DISTRIBUTION WIDTH 13.3 % (11.7-14.4)
[2022-08-23 13:02] LABS: ANION GAP 15.3 mmol/L (8-16); CALCIUM 9.6 mg/dL (8.4-10.2); CREATININE, SERUM 1.03 mg/dL (0.72-1.25); POTASSIUM 4.3 mmol/L (3.5-5.1)
[~2022-08-24] MED LIST changes: +ACETAMINOPHEN/CODEINE 300MG - 30MG TAB ONE; +DIGESTIVE ENZY220 MG; -EPHEDRINE SULFATE INJ 50 MG/ML VIAL ONE; +GENTAMICIN 80MG/NS 100 ML 100 ML IV ONE; +GLYCOPYRROLATE INJ 0.2 MG/ML VIAL ONE; +IOPAMIDOL 370 MG/ML 100 ML INFUS..BTL INJ ONE; -IOPAMIDOL 610MG/1ML 300 MG/ML VIAL IV ONE; +LABETALOL HCL 20 ML ONE; -PHENYLEPHRINE HCL 1% 10 MG/ML VIAL ONE
[2022-08-24 11:28] VITALS: BP 155/96
== END | disposition home or self-care (01) ==
LOC: OR 07:20
PROVIDERS: ATTEND Urology
DX: N20.0 Calculus of kidney (principal); N13.30 Unspecified hydronephrosis; Z46.6 Encounter for fitting and adjustment of urinary device; N40.1 Benign prostatic hyperplasia with lower urinary tract symptoms; N13.8 Other obstructive and reflux uropathy; I10 Essential (primary) hypertension; E78.5 Hyperlipidemia, unspecified; I25.10 Atherosclerotic heart disease of native coronary artery without angina pectoris; K21.9 Gastro-esophageal reflux disease without esophagitis; Z01.812 Encounter for preprocedural laboratory examination; Z01.818 Encounter for other preprocedural examination; Z79.02 Long term (current) use of antithrombotics/antiplatelets; Z79.82 Long term (current) use of aspirin; Z79.899 Other long term (current) drug therapy; Z86.73 Personal history of transient ischemic attack (TIA), and cerebral infarction without residual deficits; Z87.891 Personal history of nicotine dependence
CPT/HCPCS: 36415; 52356; 74018; 74420; 80048; 84550; 85025; 88300; C1766; C1769; C1874; J0696; J1100; J1580; J2001; J2250; J2405; J2704; J3010; J3490; Q9967

== ENCOUNTER → 2022-10-03 | Day surgery (SDC) | payer MEDICARE ==
[2022-09-30 12:13] LABS: BASOPHILS # (AUTO) 0.1 (0.0-0.1); EOSINOPHILS # (AUTO) 0.5 (0.0-0.4); HEMOGLOBIN 13.4 g/dL (14.0-18.0); LYMPHOCYTES # (AUTO) 1.4 (1.0-3.2); MEAN CORPUSCULAR HGB CONC 32.7 g/dL (31-35); MEAN CORPUSCULAR VOLUME 88.7 fL (81-99); MONOCYTES # (AUTO) 0.6 (0.2-0.8); MONOCYTES % 7.8 % (4.4-11.3); NEUTROPHILS # (AUTO) 5.3 (2.1-6.9); NEUTROPHILS % 66.7 % (38.7-80.0); PLATELET COUNT 213 x10e3/uL (140-360); RED BLOOD COUNT 4.62 x10e6/uL (4.3-5.7); RED CELL DISTRIBUTION WIDTH 13.6 % (11.7-14.4)
[2022-09-30 12:34] LABS: ANION GAP 16.3 mmol/L (8-16); CALCIUM 9.6 mg/dL (8.4-10.2); CREATININE, SERUM 0.99 mg/dL (0.72-1.25); POTASSIUM 4.3 mmol/L (3.5-5.1)
[~2022-10-03] MED LIST changes: -ACETAMINOPHEN/CODEINE 300MG - 30MG TAB ONE; -DEXAMETHASONE SOD PHOS INJ 4 MG/ML SDV ONE; +FLOMAX0.4 MG PO; -GENTAMICIN 80MG/NS 100 ML 100 ML IV ONE; +GENTAMICIN 80MG/NS 100 ML 200 ML IV ONE; -GLYCOPYRROLATE INJ 0.2 MG/ML VIAL ONE; -IOPAMIDOL 370 MG/ML 100 ML INFUS..BTL INJ ONE; +IOPAMIDOL 610MG/1ML 300 MG/ML VIAL IV ONE; -LABETALOL HCL 20 ML ONE; +LACTATED RINGER'S 1,000 ML ONE; -MIDAZOLAM HCL 2 MG/2 ML VIAL ONE; +OXYBUTYNIN CHLOR5 MG PO
[2022-10-03 16:20] VITALS: BP 144/83
== END | disposition home or self-care (01) ==
LOC: OR 11:48
PROVIDERS: ATTEND Urology
DX: N20.0 Calculus of kidney (principal); Z46.6 Encounter for fitting and adjustment of urinary device; N32.89 Other specified disorders of bladder; N28.89 Other specified disorders of kidney and ureter; N40.1 Benign prostatic hyperplasia with lower urinary tract symptoms; N13.8 Other obstructive and reflux uropathy; R39.14 Feeling of incomplete bladder emptying; R35.1 Nocturia; I10 Essential (primary) hypertension; Z01.810 Encounter for preprocedural cardiovascular examination; Z01.812 Encounter for preprocedural laboratory examination; Z01.818 Encounter for other preprocedural examination; Z79.02 Long term (current) use of antithrombotics/antiplatelets; Z79.82 Long term (current) use of aspirin; Z79.899 Other long term (current) drug therapy; Z68.35 Body mass index [BMI] 35.0-35.9, adult; Z86.73 Personal history of transient ischemic attack (TIA), and cerebral infarction without residual deficits; Z87.891 Personal history of nicotine dependence; Z84.1 Family history of disorders of kidney and ureter
CPT/HCPCS: 36415; 52352; 71046; 74018; 74420; 80048; 85025; 88300; 93005; C1758; C1769; J0696; J1580; J2001; J2405; J2704; J3010; J7121; Q9967

== ENCOUNTER 2024-03-18 11:05 | Emergency (ER) | payer MEDICARE ==
[~2024-03-18] VITALS: Ht 180.3 cm; Wt 99.8 kg
[~2024-03-18 11:05] MED LIST changes: -CEFTRIAXONE 1 GM VIAL ONE; -FENTANYL CITRATE/PF 100MCG/2 ML INJ ONE; -GENTAMICIN 80MG/NS 100 ML 200 ML IV ONE; -IOPAMIDOL 610MG/1ML 300 MG/ML VIAL IV ONE; -LACTATED RINGER'S 1,000 ML ONE; -LIDOCAINE HCL 2% LOCAL INJ 5 ML SDV VIAL INJ ONE; -ONDANSETRON HCL INJ 2MG/ML 2ML 2 MG/ML VIAL ONE; -POVIDONE IODINE 0.05% 0.05 % ML PO ONE; -PROPOFOL IV EMULSION 10 MG/ML 20 ML VIAL ONE; -SEVOFLURANE INHAL SOLN 250 ML PEN BTL ONE
[2024-03-18 15:55] VITALS: PULSE 70; RESP 18; TEMP 98.7; O2SAT 99
== END 2024-03-18 16:37 | disposition home or self-care (01) ==
LOC: ER 11:32
DX: T16.2XXA Foreign body in left ear, initial encounter (principal); I10 Essential (primary) hypertension; E78.5 Hyperlipidemia, unspecified; K21.9 Gastro-esophageal reflux disease without esophagitis; L30.9 Dermatitis, unspecified; Z86.73 Personal history of transient ischemic attack (TIA), and cerebral infarction without residual deficits
CPT/HCPCS: 99284

== ENCOUNTER 2025-04-02 11:37 | Emergency (ER) | payer MEDICARE ==
[~2025-04-02] VITALS: Ht 180.3 cm; Wt 99.8 kg
[2025-04-02 14:26] LABS: BASOPHILS % 1.3 % (0.0-1.0); EOSINOPHILS % 6.5 % (0.0-6.0); LYMPHOCYTES % 18.3 % (18.0-39.1); MONOCYTES % 8.7 % (4.4-11.3); NEUTROPHILS % 64.8 % (38.7-80.0); RED CELL DISTRIBUTION WIDTH 13.2 % (11.7-14.4)
[2025-04-02] MEDS: SODIUM CHLORIDE 0.9% 1000ML 1,000 ML IV STA (14:30)
[2025-04-02 14:49] LABS: EST GLOMERULAR FILTRATION RATE 78.0 ML/MIN (>=60)
[2025-04-02 14:57] LABS: INR 0.99
[2025-04-02 15:00] VITALS: PULSE 81; RESP 16; TEMP 98.6
[2025-04-02] MEDS ORDERED: AMOX TR-K CLV1 EAC2 PO (16:59)
[2025-04-02 17:22] VITALS: BP 141/67; PULSE 78; RESP 18; O2SAT 100
[2025-04-02] MEDS ORDERED: IOPAMIDOL 370 MG/ML 100 ML INFUS..BTL INJ ONE (18:32)
[2025-04-02] MEDS ORDERED: SODIUM CHLORIDE 0.9% 100 ML ONE (18:32)
== END 2025-04-02 17:26 | disposition home or self-care (01) ==
LOC: ER 12:34
DX: K57.30 Diverticulosis of large intestine without perforation or abscess without bleeding (principal); K80.20 Calculus of gallbladder without cholecystitis without obstruction; N20.0 Calculus of kidney; I10 Essential (primary) hypertension; E78.5 Hyperlipidemia, unspecified; K21.9 Gastro-esophageal reflux disease without esophagitis; L30.9 Dermatitis, unspecified; Z86.73 Personal history of transient ischemic attack (TIA), and cerebral infarction without residual deficits
CPT/HCPCS: 36415; 74174; 80053; 83735; 85025; 85610; 85730; 99284; J2470; J7030; J7050; Q9967